=== PATIENT | male | born 1975 | race Caucasian/White ===

== ENCOUNTER 2016-09-21 16:06 | Emergency (ER) | payer BC ==
[2016-09-21] MEDS ORDERED: [UNRECOGNIZED DRUG - OTHER] IV ONE (17:33)
== END 2016-09-21 19:04 | disposition home or self-care (01) ==
LOC: FASTR 16:06
DX: I80.299 Phlebitis and thrombophlebitis of other deep vessels of unspecified lower extremity (principal); L03.116 Cellulitis of left lower limb
CPT/HCPCS: 36415; 80053; 85025; 85652; 87040; 93971; 96365